=== PATIENT | female | born 1960 | race Caucasian/White ===

== ENCOUNTER 2016-09-09 07:30 | Emergency (ER) | payer OTHER ==
[~2016-09-09] VITALS: Ht 157.5 cm; Wt 78.0 kg
[~2016-09-09 07:30] MED LIST: BUSP15TA PO; CYCL5TAB PO; DARV PO; TOPI50TA4 PO
[2016-09-09 07:43] VITALS: BP 177/91; PULSE 113; RESP 16; TEMP 97.9; O2SAT 98
[2016-09-09] MEDS ORDERED: SODIUM CHLORID 0.9% 500 ML INJ 500 ML IV ONE (07:45)
[2016-09-09 07:47] VITALS: RESP 16; O2SAT 98
[2016-09-09] MEDS ORDERED: BUSP5TAB PO (07:52)
[2016-09-09] MEDS ORDERED: PHEN37.54 PO (07:52)
[2016-09-09] MEDS ORDERED: TOPA25TA8 PO (07:52)
--- NOTE | 2016-09-09 07:53 | PD ---
HPI Chief Complaint: Allergic/Adverse Reaction Time Seen by Provider: 07:42 Travel History International Travel<30 days: No Contact w/Intl Traveler<30days: No Traveled to known affect area: No History of Present Illness HPI 55-year-old female states she has been on phentermine for the past 8 days and felt that her heart rate has intermittently been fast but this morning at rest it was significantly elevated so she elected to come in. She states she didn't have any other concurrent complaints such as palpitations or pain but her fit bit said her heart rate was in the 200s. She states Dr. Leigh is her primary care physician and started the medication for weight loss. She denies specific modifying factors. Quality is racing. Per patient in the 200s. She states when she was in triage her fit bit was not correlating with our numbers PFSH Past Medical History Hx Anticoagulant Therapy: No Anxiety: Yes Diabetes: No Diverticulitis: Yes Migraines: Yes ?: Not Social History Alcohol Use: Yes (2 GLASSES WINE ON THE WEEKENDS) Tobacco Use: No Substance Use: No Allergies-Medications (Allergen,Severity, Reaction): Coded Allergies: No Known Allergies (Verified , 09/09/16) Reported Meds & Prescriptions Reported Meds & Active Scripts Active Reported Phentermine (Phentermine HCl) 37.5 Mg Cap 37.5 Mg PO DAILY Buspirone (Buspirone HCl) 5 Mg Tab 5 Mg PO TID Topamax (Topiramate) 25 Mg Tab 25 Mg PO TID Review of Systems Except as stated in HPI: all other systems reviewed are Neg Physical Exam Narrative GENERAL: Well-nourished, well-developed patient. SKIN: Warm and dry. HEAD: Normocephalic and atraumatic. EYES: No injection or drainage. ENT: No nasal drainage noted. NECK: Supple, trachea midline. CARDIOVASCULAR: Sinus tachycardia at 110 while I was in room with patient RESPIRATORY: Breath sounds equal bilaterally. No accessory muscle use. EXTREMITIES: No edema. NEUROLOGICAL: Awake and alert. Motor and sensory grossly within normal limits. Normal speech. Data Data Last Documented VS Vital Signs Date Time Temp Pulse Resp B/P Pulse Ox O2 Delivery O2 Flow Rate FiO2 09/09/16 09:24 106 16 176/96 100 09/09/16 08:08 Room Air 09/09/16 07:43 97.9 Orders Magnesium (Mg) (09/09/16 07:42) Phosphorus (Po4) (09/09/16 07:42) Complete Blood Count With Diff (09/09/16 07:42) Basic Metabolic Panel (Bmp) (09/09/16 07:42) Electrocardiogram (09/09/16 ) Iv Access Insert/Monitor (09/09/16 07:42) Ecg Monitoring (09/09/16 07:42) Oximetry (09/09/16 07:42) Sodium Chlorid 0.9% 500 Ml Inj (Ns 500 M (09/09/16 07:45) Labs Laboratory Tests Test 09/09/16 07:45 White Blood Count 7.6 TH/MM3 Red Blood Count 5.20 MIL/MM3 Hemoglobin 15.2 GM/DL Hematocrit 47.8 % Mean Corpuscular Volume 92.0 FL Mean Corpuscular Hemoglobin 29.3 PG Mean Corpuscular Hemoglobin 31.8 % Concent Red Cell Distribution Width 13.1 % Platelet Count 338 TH/MM3 Mean Platelet Volume 8.3 FL Neutrophils (%) (Auto) 52.5 % Lymphocytes (%) (Auto) 40.5 % Monocytes (%) (Auto) 5.9 % Eosinophils (%) (Auto) 0.5 % Basophils (%) (Auto) 0.6 % Neutrophils # (Auto) 4.1 TH/MM3 Lymphocytes # (Auto) 3.1 TH/MM3 Monocytes # (Auto) 0.4 TH/MM3 Eosinophils # (Auto) 0.0 TH/MM3 Basophils # (Auto) 0.0 TH/MM3 CBC Comment DIFF FINAL Differential Comment Sodium Level 140 MEQ/L Potassium Level 3.4 MEQ/L Chloride Level 106 MEQ/L Carbon Dioxide Level 23.3 MEQ/L Anion Gap 11 MEQ/L Blood Urea Nitrogen 13 MG/DL Creatinine 0.95 MG/DL Estimat Glomerular Filtration 62 ML/MIN Rate Random Glucose 115 MG/DL Calcium Level 9.8 MG/DL Phosphorus Level 2.4 MG/DL Magnesium Level 2.3 MG/DL [facility] Medical Decision Making Medical Screen Exam Complete: Yes Emergency Medical Condition: Yes Medical Record Reviewed: Yes (past history confirmed) Interpretation(s) EKG shows sinus tachycardia at 105, no ST elevation or depression, and no arrhythmias. No significant T-wave inversions. CBC & BMP Diagram 09/09/16 07:45 Differential Diagnosis Electrolyte abnormalities, medication effect, atrial fibrillation, SVT Narrative Course Will check blood work and EKG and discuss with primary care physician Labs are within normal limits, heart rate here is now 93,Patient denies any new complaints and states that they are feeling better. Patient happy with care, all questions answered. Patient knows that follow up is incumbent on them and to return to the emergency room immediately if new or worsening symptoms develop. Patient given strict return precautions, vitals reviewed and are normal , agrees to further workup as an outpatient. We will taper medication given higher dose with every other day with further adjustment through her primary Physician Communication Physician Communication dr mckenzie states to change pill to one every other day then will stop Diagnosis Primary Impression: Tachycardia Additional Impression: Medication side effect Qualified Code: T88.7XXA - Medication side effect, initial encounter Patient Instructions: General Instructions Additional Instructions: take your diet pill every other day, call primary for follow up next 1-2 days, return as needed Med/Other Pt SpecificInfo: Existing Med Changed Disposition: DISCHARGE HOME Condition: Stable Sarai Rodirguez MD Sep 09, 2016 07:53
[2016-09-09 07:55] LABS: AUTOMATED NEUTROPHIL # 4.1 TH/MM3 (1.8-7.7); BASOPHIL % 0.6 % (0.0-2.0); EOSINOPHIL % 0.5 % (0.0-4.0); HEMATOCRIT 47.8 % (35.0-46.0); HEMO FLAGS DIFF FINAL; LYMPH % 40.5 % (9.0-44.0); LYMPHOCYTE # 3.1 TH/MM3 (1.0-4.8); MEAN CORPUSCULAR HEMOGLOBIN 29.3 PG (27.0-34.0); MEAN CORPUSCULAR HGB CONC 31.8 % (32.0-36.0); MONO % 5.9 % (0.0-8.0); NEUT % 52.5 % (16.0-70.0); PLATELET COUNT 338 TH/MM3 (150-450); RED CELL DISTRIBUTION WIDTH 13.1 % (11.6-17.2); WHITE BLOOD COUNT 7.6 TH/MM3 (4.0-11.0)
[2016-09-09 08:03] LABS: POTASSIUM 3.4 MEQ/L (3.5-5.1)
[2016-09-09 08:06] LABS: BICARBONATE 23.3 MEQ/L (21.0-32.0); MAGNESIUM 2.3 MG/DL (1.5-2.5)
[2016-09-09 08:08] VITALS: BP 165/91; PULSE 92; RESP 16; O2SAT 97
[2016-09-09 09:24] VITALS: BP 176/96
--- NOTE | 2016-09-10 13:36 | EKG ---
Date Performed: 09/09/2016 Time Performed: 07:48:02 PTAGE: 55 years EKG: Sinus tachycardia Normal ECG except for rate PREVIOUS TRACING : 06/07/2003 19.05 Compared to prior tracing no significant change DOCTOR: Wilfrid Sam Interpretating Date/Time 09/10/2016 13:35:23
== END 2016-09-09 09:36 | disposition home or self-care (01) ==
LOC: PHED 07:30
DX: R00.0 Tachycardia, unspecified (principal)
CPT/HCPCS: 80048; 83735; 84100; 85025; 93005; 96360; 99285; J7040

== ENCOUNTER 2016-10-17 09:54 | Emergency (ER) | payer OTHER ==
[~2016-10-17] VITALS: Ht 157.5 cm; Wt 76.2 kg
[~2016-10-17 09:54] MED LIST changes: -BUSP15TA PO; +BUSP5TAB PO; -CYCL5TAB PO; -DARV PO; +PHEN37.54 PO; +TOPA25TA8 PO; -TOPI50TA4 PO
[2016-10-17 10:11] VITALS: BP 149/94; PULSE 83; RESP 16; TEMP 98.7; O2SAT 98
--- NOTE | 2016-10-17 11:07 | PD ---
HPI Chief Complaint: Musculoskeletal Complaint Time Seen by Provider: 11:07 Travel History International Travel<30 days: No Contact w/Intl Traveler<30days: No Traveled to known affect area: No History of Present Illness HPI 55-year-old female presents the emergency Department with sudden onset right buttock and hip pain which is gotten progressively worse in the past 3 days. Patient has no specific injury. She describes the pain as a 10 over 10 burning aggravating pain. Patient states it does not seem to get better or worse with walking, stretching, or exertion. Patient states he does not improve things. She states ice does help somewhat. She's been taking over- the-counter NSAIDs without improvement. Patient denies any specific rash. No history of sciatica in the past. Patient denies numbness or weakness. She has no known drug allergies. PFSH Past Medical History Hx Anticoagulant Therapy: Yes (asa 81mg) Anxiety: Yes Diabetes: No Diminished Hearing: No Diverticulitis: Yes Migraines: Yes ?: Not Past Surgical History Surgical History: No Previous Surgery Social History Alcohol Use: Yes (2 GLASSES WINE ON THE WEEKENDS) Tobacco Use: No Substance Use: No Allergies-Medications (Allergen,Severity, Reaction): Coded Allergies: No Known Allergies (Verified , 10/17/16) Reported Meds & Prescriptions Reported Meds & Active Scripts Active Reported Buspirone (Buspirone HCl) 5 Mg Tab 5 Mg PO TID Topamax (Topiramate) 25 Mg Tab 25 Mg PO TID Review of Systems Except as stated in HPI: all other systems reviewed are Neg General / Constitutional: No: Fever Eyes: No: Visual changes HENT: No: Headaches Cardiovascular: No: Chest Pain or Discomfort Respiratory: No: Shortness of Breath Gastrointestinal: No: Abdominal Pain Genitourinary: No: Dysuria Musculoskeletal: Positive: Pain, No: Myalgias, Arthralgias, Limited ROM (see history present illness.), Weakness, Cramping, Edema Skin: No Rash Neurologic: No: Weakness Psychiatric: No: Depression Endocrine: No: Polydipsia Hematologic/Lymphatic: No: Easy Bruising Physical Exam Narrative GENERAL: Patient appears in mild to moderate distress. SKIN: Warm and dry. Normal color. Normal turgor. No rash appreciated. HEAD: Atraumatic. Normocephalic. EYES: Pupils equal and round. No scleral icterus. No injection or drainage. ENT: No nasal bleeding or discharge. Mucous membranes pink and moist. Pharynx is clear. Airway is patent. NECK: Trachea midline. Supple nontender. CARDIOVASCULAR: Regular rate and rhythm. RESPIRATORY: No accessory muscle use. Clear to auscultation. Breath sounds equal bilaterally. GASTROINTESTINAL: Abdomen soft, non-tender, nondistended. Hepatic and splenic margins not palpable. MUSCULOSKELETAL: Extremities without clubbing, cyanosis, or edema. No obvious deformities. Patient has generalized tenderness with palpation to the right buttock, without specific point tenderness or bony tenderness. Straight leg raise pain is negative, and range of motion is full without change of pain. Rest of the muscle skeletal exam is unremarkable. NEUROLOGICAL: Awake and alert. No obvious cranial nerve deficits. Motor grossly within normal limits. Five out of 5 muscle strength in the arms and legs. Normal speech. PSYCHIATRIC: Appropriate mood and affect; insight and judgment normal. Data Data Last Documented VS Vital Signs Date Time Temp Pulse Resp B/P Pulse Ox O2 Delivery O2 Flow Rate FiO2 10/17/16 10:11 98.7 83 16 149/94 98 Orders Hip, Uni(Ap&Lat) W Ap Pelvis (10/17/16 11:12) Ketorolac Inj (Toradol Inj) (10/17/16 11:15) MDM Medical Decision Making Medical Screen Exam Complete: Yes Emergency Medical Condition: Yes Differential Diagnosis Sacroiliitis. Sciatica. Herpes zoster without rash. Narrative Course Patient is medically stable at time of exam. She is given Toradol 60 mg IM. X-ray is taken of the right hip and pelvis. X-rays are negative for acute process. Patient is felt to have herpes zoster without obvious rash based on my history and physical. Patient is to take Valtrex 1 g 3 times a day 7 days. Patient is given gabapentin 100 mg 3 times a day #90. Patient is given tramadol 50 mg one every 6 hours when necessary pain. I discussed with the patient that she may get a rash in the next week and the need to avoid people, immunosuppressed people, or the elderly with active rash. Patient should follow with her primary care physician or return to the emergency department as needed. Diagnosis Primary Impression: Neuralgia and neuritis, unspecified Additional Impression: Herpes zoster Qualified Code: B02.8 - Herpes zoster with complication Referrals: Primary Care Physician Patient Instructions: General Instructions, Shingles (ED) Additional Instructions: X-rays are negative for acute process. Patient is felt to have herpes zoster without obvious rash based on my history and physical. Patient is to take Valtrex 1 g 3 times a day 7 days. Patient is given gabapentin 100 mg 3 times a day #90. Patient is given tramadol 50 mg one every 6 hours when necessary pain. I discussed with the patient that she may get a rash in the next week and the need to avoid people, immunosuppressed people, or the elderly with active rash. Patient should follow with her primary care physician or return to the emergency department as needed. Med/Other Pt SpecificInfo: Prescription(s) given Scripts Tramadol 50 Mg Tab50 Mg PO Q6H PRN (PAIN) #20 TAB Prov:Parul Munoz MD 10/17/16 Gabapentin 100 Mg [id number] Mg PO TID #90 CAP Ref 0 Prov:Parul Munoz MD 10/17/16 Valacyclovir (Valtrex)1 Gm Tab1,000 Mg PO TID 7 Days Ref 0 Prov:Parul Munoz MD 10/17/16 Disposition: 01 DISCHARGE HOME Condition: Stable Abbe Owens October 17, 2016 11:07
[2016-10-17] MEDS ORDERED: KETOROLAC TROMETHAMINE 60 MG/2 ML (IM) VIAL IM ONE (11:15)
--- NOTE | 2016-10-17 11:46 | RADHPO ---
EXAM DATE/TIME: 10/17/2016 11:20 [facility] COMPARISON: No previous studies available for comparison. INDICATIONS : Right hip area pain, no known injury MEDICAL HISTORY : None. SURGICAL HISTORY : None. ENCOUNTER: Initial ACUITY: 3 days PAIN SCORE: 9/10 LOCATION: Right hip FINDINGS: Examination of the right hip was performed with AP Pelvis. The primary and secondary trabecular filomena dillon of the femoral neck is intact. The hip joint is of normal width without significant sclerosis or bony hypertrophy. The acetabulum is grossly intact. CONCLUSION: No acute fracture. Michel Griggs MD on October 17, 2016 at 11:43 Board Certified Radiologist. This report was verified electronically.
[2016-10-17] MEDS ORDERED: TRAM50TA PO (12:04)
[2016-10-17] MEDS ORDERED: VALT1TAB PO (12:04)
[2016-10-17] MEDS ORDERED: GABA100C4 PO (12:04)
[2016-10-17 12:21] VITALS: RESP 16
== END 2016-10-17 12:23 | disposition home or self-care (01) ==
LOC: PHEFT 09:54
DX: M79.2 Neuralgia and neuritis, unspecified (principal); B02.9 Zoster without complications; Z79.82 Long term (current) use of aspirin
CPT/HCPCS: 73502; 96372; 99283; J1885